=== PATIENT | female | born 1940 | race Caucasian/White ===

== ENCOUNTER 2016-05-03 08:06 | Emergency (ER) | payer MEDICARE ==
[~2016-05-03] VITALS: Ht 152.4 cm; Wt 52.2 kg
[~2016-05-03 08:06] MED LIST: ALBU8.5H INH; ALPR0.25 PO; HYDR-4246 PO; ONDA4TAB4 PO
[2016-05-03 08:10] VITALS: TEMP 98.2; Ht 152.4 cm; Wt 52.2 kg
--- OUTSIDE RECORDS SUMMARY | 2016-05-03 08:13 | XMS REPORT | Continuity of Care Document ---
Demographics Preferred Language Unknown Marital Status Unknown Anabaptist Affiliation Unknown Race Unknown Ethnic Group Unknown Author Author [facility] Organization [facility] Address Unknown Phone Unavailable Support Name Relationship Address Phone BRITTNY NG MD Caregiver [address] [place] [phone] Unavailable Advance Directives Directive Response Recorded Date/Time Advanced Directives Type None 02/01/16 2:25pm Chief Complaint and Reason for Visit Chief Complaint General Reason for Visit Back pain Problems Active Problems Medical Problem Onset Date Status Back pain Unknown Acute Medications Current Home Medications Medication Dose Units Route Directions Days Qty Instructions Start Date Albuterol Sulfate (Proair Hfa 90 Mcg/Actuation) 8.5 Gm Hfa.aer.ad 1 Puff Inhalation Every 6 Hours 02/01/16 Albuterol Sulfate (Proair Hfa 90 Mcg/Actuation) 8.5 Gm Hfa.aer.ad 1 Puff Inhalation Every 4 Hours as needed for Shortness Of Air 1 Inhaler 01/31 Alprazolam (Xanax) 0.25 Mg Tablet 0.25 Mg Oral Twice A Day as needed for Anxiety 02/01/16 Alprazolam (Xanax) 0.25 Mg Tablet 0.25 Mg Oral Every Eight Hours as needed for Anxiety/Airhunger/Agitation 30 Tablet 02/01/16 Hydrocodone/Acetaminophen ([place] 5-325 Tablet) 5-325 Tablet 0.5 Tab Oral Every 4 Hours as needed for Pain 02/01/16 Hydrocodone/Acetaminophen ([place] 5-325 Tablet) 5-325 Tablet 1 Tab Oral Every Six Hours as needed for Pain 30 Tablet 02/01/16 Ondansetron Hcl (Zofran) 4 Mg Tablet 4 Mg Oral Every 6 Hours for Nausea 20 Tablet 02/01/16 Social History Query Response Start Date Stop Date Smoking Status Never smoker Hospital Discharge Instructions No hospital discharge instructions. Plan of Care Discharge Date 02/01/16 4:18pm Disposition 01 DISCHARGED HOME, SELF-CARE Condition at Discharge Improved Instructions/Education Provided DI Sacroiliac Joint Dysfunction Prescriptions See Medication Section Referrals TORRES KRUEGER APRN Address: [address] [place] [phone] Note: CALL SOON POSSIBLE TO MAKE APPOINTMENT TO BE SEEN BY [facility] Additional Instructions/Education CALL [facility] AT [facility] REQUEST APPOINTMENT FOR MED CHECK . LET THE OFFICE KNOW THAT [facility] WAS CONTACTED BY THE ER AND AGREED TO SEE YOU FOR THIS. PHONE IS [phone] PLEASE RETURN TO THE ER IF NEEDED. Functional Status No functional status results. Allergies, Adverse Reactions, Alerts Allergen Type Severity Reaction Status Last Updated Codeine Allergy Mild SICK Active 02/01/16 Bupropion Allergy Mild SICK Active 02/01/16 Immunizations No immunization records. Vital Signs Acute Vital Signs Vital Response Date/Time Temperature (Fahrenheit) 98.7 deg F (96.8 - 99.1) 02/01/2016 4:18pm Temperature (Calculated Celsius) 37.42758 degrees C (36.0 - 37.3) 02/01/2016 4:18pm Pulse Rate (adult) 71 bpm (60 - 100) 02/01/2016 4:18pm Respiratory Rate 16 breaths/min (10 - 20) 02/01/2016 4:18pm O2 Sat by Pulse Oximetry 98 % (90 - 100) 02/01/2016 4:18pm Blood Pressure 138/80 mm Hg 02/01/2016 4:18pm Height (Feet) 5 feet 02/01/2016 2:25pm Height (Inches) 1.00 inches 02/01/2016 2:25pm Weight (Kilograms) 53.000 kg 02/01/2016 2:25pm Body Mass Index (BMI) 22.0 02/01/2016 2:25pm Results Laboratory Results Test Name Result Units Flags Reference Collection Date/Time Result Date/ Time Comments Urine Collection Type VOIDED-NOT CC-MIDSTR 02/01/2016 3:37pm 2015 3:50pm Urine Color YELLOW YELLOW 02/01/2016 3:37pm 02/01/2016 3:50pm Urine Turbidity CLEAR CLEAR 02/01/2016 3:37pm 02/01/2016 3:50pm Urine Specific [place] 1.015 1.015-1.025 02/01/2016 3:37pm 2015 3:50pm Urine pH 6.5 5.0-8.0 02/01/2016 3:37pm 02/01/2016 3:50pm Urine Leukocyte Esterase NEGATIVE NEGATIVE 02/01/2016 3:37pm 2015 3:50pm Urine Nitrite NEGATIVE NEGATIVE 02/01/2016 3:37pm 02/01/2016 3:50pm Urine Protein NEGATIVE NEGATIVE 02/01/2016 3:37pm 02/01/2016 3:50pm Urine Glucose (UA) NEGATIVE NEGATIVE 02/01/2016 3:37pm 02/01/2016 3: 50pm Urine Ketones 1+ A NEGATIVE 02/01/2016 3:37pm 02/01/2016 3:50pm Urine Urobilinogen 0.2 EU/DL NORMAL 02/01/2016 3:37pm 02/01/2016 3: 50pm Urine Bilirubin NEGATIVE NEGATIVE 02/01/2016 3:37pm 02/01/2016 3: 50pm Urine Blood 1+ A NEGATIVE 02/01/2016 3:37pm 02/01/2016 3:50pm Urine WBC NONE SEEN /HPF 0-5 02/01/2016 3:37pm 02/01/2016 3:57pm Urine RBC 0-1 /HPF 0-3 02/01/2016 3:37pm 02/01/2016 3:57pm Urine Bacteria NONE SEEN NEGATIVE 02/01/2016 3:37pm 02/01/2016 3: 57pm Urine Culture Indicated CULT NOT INDICATED 02/01/2016 3:37pm 2015 3:57pm Procedures No known history of procedures. Encounters Encounter Location Arrival/Admit Date Discharge/Depart Date Attending Provider Registered Emergency Room [facility] 02/01/16 2:22pm BRITTNY NG MD Recent Diagnosis
--- NOTE | 2016-05-03 08:27 | ERPDOC ---
Departure Disposition Decision Date: May 03, 2016 Disposition Decision Time: 10:24 Disposition: 01 DISCHARGED HOME, SELF-CARE Impression Impression Impression: Primary Impression: Abdominal pain Abdominal location: generalized Qualified Codes: R10.84 - Generalized abdominal pain Additional Impression: Ovarian cancer Laterality: unspecified laterality Qualified Codes: C56.9 - Malignant neoplasm of unspecified ovary Severity: Moderate Condition: Improved Seen By: Physician only Referrals: Rona FRAZIER MD Follow-up for reevaluation and solomon discussion of your treatment Patient Instructions: Pharmacological Management of Cancer Pain (ED) Problems/Meds/Labs Reviewed?: Yes Medications reviewed and manag: Yes Follow up care ordered?: Yes Mental Status: Alert, Oriented Scripts Promethazine HCl (Promethazine HCl) 25 Mg Tablet 1 TAB PO Q6H Y for NAUSEA &/OR VOMITING, #20 Prov: AILIN ALEJANDRA MD 05/03/16 HPI - Abdominal Pain General Chief Complaint: Abdominal Pain Stated Complaint: ABD PAIN Time Seen by Provider: 08:27 Source: patient History/Exam Limitations: no limitations HPI - Abdominal Pain Initial Comments Patient is 75-year-old female known history of ovarian cancer. Patient currently not choosing to treat. Patient woke at midnight with severe abdominal cramping with nausea and diarrhea at 7:30 this morning she started vomiting. Patient was given Phenergan and fentanyl by EMS and brought to the ER for evaluation. Patient denies any fevers, chills. Occurred At: home Duration: 6-12 hrs Pain Scale: Now: 4/10, Worst: 9/10 Location: generalized abdomen Allergies: Coded Allergies: ondansetron (Verified Allergy, Severe, 05/03/16) bupropion (Verified Allergy, Mild, SICK, 05/03/16) codeine (Verified Allergy, Mild, SICK, 05/03/16) Past History Past Medical History Metabolic: cancer (ovarian) Respiratory: COPD Psychological: anxiety, depression Social History Smoking Status: Current every day smoker Substance Use Type: does not use Alcohol Intake: none Marital Status: Housing: house Household Members: children Review of Systems Constitutional Constitutional: DENIES: appetite decrease, chills, dizziness, fever, weakness Eyes Vision: DENIES: double vision, loss of visual [place] ENMT Sinuses: DENIES: congestion, rhinorrhea Mouth/Throat: DENIES: scratchy throat, sore throat Cardiovascular Cardiac: DENIES: chest pain, dyspnea on exertion Pulmonary Respiratory: DENIES: cough, dyspnea, sputum, tachypnea GI Upper Abdomen: nausea, pain, vomiting Lower Abdomen: diarrhea, pain, DENIES: constipation General: DENIES: frequency, urgency Musculoskeletal General: DENIES: cramps, pain, weakness Endocrine Endocrine: DENIES: heat/cold intolerance Hematologic/Lymphatic Hematologic/Lymphatic: DENIES: anemia Physical Exam General General Nourishment: well nourished, well developed General Body Habitus: well groomed Vitals and Pain Weight: Kilograms: Height (feet): 5 Height (inches): 1.00 Triage Pain Scale: RN VS reviewed by Provider: Yes Eyes (brief) Eyes Brief: found: EOMI ENMT (brief) ENMT Brief: FOUND: mucosa moist, normal dentition, NOT FOUND: nasal erythema, pharnyx erythema, tonsillar deviation Neck (brief) Neck: NOT FOUND: adenopathy, spasm, tenderness Respiratory (brief) Respiratory: FOUND: clear all [place], equal bilaterally, NOT FOUND: rales, wheezes Cardiovascular (brief) Cardiac: FOUND: regular rate, regular rhythm Abdomen Palpation: FOUND: soft, tender (mild diffuse tenderness), NOT FOUND: Obturator sign, Psoas sign, hepatomegaly, involuntary guarding, splenomegaly, voluntary guarding Auscultation: FOUND: hyperactive Lymphatic (brief) Lymphatic Brief: NOT FOUND: adenopathy Musculoskeletal (brief) Musculoskeletal Brief: NOT FOUND: spasm, tenderness Integumentary (brief) Integumentary Brief: FOUND: dry, pink, warm, NOT FOUND: rash Neurologic (brief) Neurological Brief: FOUND: CN w/o gross def to obs, motor-no gross deficits, sensory-no gross deficits Psychiatric (brief) Psychiatric Brief: FOUND: alert, oriented Differential Diagnoses Considering: Appendicitis, Biliary Colic, Bowel Obstruction, Cholecystitis, Constipation, Crohn's, Diverticulitis, Gastroenteritis, GERD, GI Bleed, Ileus, Neoplasm, Ovarian Torsion, Pancreatitis, Pneumonia, Pyelonephritis, Renal Colic , Ulcer, Ulcerative Colitis, UTI, Volvulus Progress Results/Orders Orders Lab Results Medications Current ED Medications Fentanyl (Fentanyl) 50 mcg O ONCE IV Last administered on 05/03/16t 09:00; Start 05/03/16 at 08:45; Stop 05/03/16 at 11:24; Status DC Prochlorperazine Edisylate 10 mg 10 mg O ONCE IV Last administered on 08:55; Start 05/03/16 at 08:45; Stop 05/03/16 at 11:24; Status DC Sodium Chloride (Normal Saline IV) 1,000 ml @ 999 mls/hr Q1H1M ONCE IV ; Start 05/03/16 at 08:45; Stop 05/03/16 at 11:24; Status DC Promethazine HCl (Phenergan) 12.5 mg O ONCE IV Last administered on 05/03/16 09:51; Start 05/03/16 at 09:45; Stop 05/03/16 at 11:24; Status DC Fentanyl (Fentanyl) 50 mcg O ONCE IV Last administered on 05/03/16 09:51; Start 05/03/16 at 09:45; Stop 05/03/16 at 11:24; Status DC Progress Progress Patient with improvement of symptoms after pain medications, laboratories are noncontributory. Discussed with patient, she would decline further imaging at this time, we'll treat with Compazine for nausea so patient can take her home pain medications. Patient is to follow-up with PCP for further evaluation if not improving AILIN ALEJANDRA MD May 03, 2016 08:27 Lymphocytes % (Manual) 6.0% Monocytes % (Manual) 3.0% Absolute Neutrophils (Manual) 6.1T/MM3 Band Neutrophils # 0.2T/MM3 Lymphocytes # (Manual) 0.4T/MM3 Monocytes # (Manual) 0.2T/MM3 Red Cell Morphology Comment Normal Turbidity < 20 Sodium Level 133MEQ/L Potassium Level 4.0MEQ/L Chloride Level 99MEQ/L Carbon Dioxide Level 27MEQ/L Anion Gap 7MEQ/L Blood Urea Nitrogen 10.0MG/DL Creatinine 0.5MG/DL Glomerular Filtration Rate Calc 121 BUN/Creatinine Ratio 20RATIO Glucose Level 129MG/DL Calculated Osmolality 257MOSM/KG Calcium Level 9.0MG/DL Total Bilirubin 0.70MG/DL Icterus Index < 2 Aspartate Amino Transf (AST/SGOT) 30U/L Alanine Aminotransferase (ALT/SGPT) 29U/L Alkaline Phosphatase 70U/L Total Protein 6.9G/DL Albumin 4.1G/DL Globulin 2.8G/DL Albumin/Globulin Ratio 1.5RATIO Lipase 67U/L Chemistry Specimen Hemolysis < 15 Urine Collection Type Voided-not cc-midstr Urine Color Yellow Urine Turbidity Sl cloudy Urine pH 8.0 Urine Specific [place] 1.015 Urine Protein Negative Urine Glucose (UA) Negative Urine Ketones 1+ Urine Blood Trace-intact Urine Nitrite Negative Urine Bilirubin Negative Urine Urobilinogen 0.2EU/DL Urine Leukocyte Esterase Negative Urinalysis Comment Microscopic not ind. Medications Current ED Medications Fentanyl (Fentanyl) 50 mcg O ONCE IV Last administered on 05/03/16 09:00; Start 05/03/16 at 08:45; Stop 05/03/16 at 08:46 Prochlorperazine Edisylate 10 mg 10 mg O ONCE IV Last administered on 08:55; Start 05/03/16 at 08:45; Stop 05/03/16 at 08:46 Sodium Chloride (Normal Saline IV) 1,000 ml @ 999 mls/hr Q1H1M ONCE IV ; Start 05/03/16 at 08:45; Stop 05/03/16 at 09:45 Promethazine HCl (Phenergan) 12.5 mg O ONCE IV Last administered on 05/03/16 09:51; Start 05/03/16 at 09:45; Stop 05/03/16 at 09:46 Fentanyl (Fentanyl) 50 mcg O ONCE IV Last administered on 05/03/16 09:51; Start 05/03/16 at 09:45; Stop 05/03/16 at 09:46 AILIN ALEJANDRA MD May 03, 2016 08:27 AILIN ALEJANDRA MD May 03, 2016 08:27
[2016-05-03] MEDS ORDERED: PROCHLORPERAZINE 10mg/2ml INJECTION IV ONE (08:45)
[2016-05-03] MEDS ORDERED: FENTANYL 100mcg/2ml INJECTION IV ONE ×2 (08:45→09:45)
[2016-05-03] MEDS ORDERED: NORMAL SALINE 1,000 ML IV ONE (08:45)
[2016-05-03 09:11] LABS: HCT - HEMATOCRIT 40.5 % (36-46); HGB - HEMOGLOBIN 13.6 GM/DL (12-16); MEAN CORPUSCULAR HGB 30.9 UUG (26-34); MEAN CORPUSCULAR HGB CONC(MCHC 33.6 GM/DL (31-37); WBC - WHITE BLOOD COUNT 6.9 T/MM3 (4.5-11.0)
[2016-05-03 09:20] LABS: ALBUMIN 4.1 G/DL (3.5-5.0); ALBUMIN/GLOBULIN RATIO 1.5 RATIO (1.1-2.2); ALKALINE PHOSPHATASE 70 U/L (38-126); ALT (SGPT) 29 U/L (9-52); ANION GAP 7 MEQ/L (5-15); AST (SGOT) 30 U/L (14-36); BUN/CREATININE RATIO 20 RATIO (6-26); CHLORIDE 99 MEQ/L (98-107); CO2 - CARBON DIOXIDE 27 MEQ/L (22-30); CREATININE 0.5 MG/DL (0.7-1.2); GLOMERULAR FILTRATION RATE 121; GLUCOSE 129 MG/DL (65-110); LIPASE 67 U/L (23-300); SODIUM 133 MEQ/L (134-144); TOTAL PROTEIN 6.9 G/DL (6.3-8.2)
[2016-05-03 09:28] LABS: BAND NEUTROPHILS # 0.2 T/MM3; LYMPHOCYTES # (MANUAL) 0.4 T/MM3 (1-4.8); MONOCYTES # (MANUAL) 0.2 T/MM3 (0-0.8); NEUTROPHILS #(MANUAL)-ABSOLUTE 6.1 T/MM3 (1.8-7.7); TOTAL CELLS COUNTED 100 %
[2016-05-03 09:35] LABS: BLOOD, URINE TRACE-INTACT (NEGATIVE); COLOR,URINE YELLOW (YELLOW); LEUKOCYTE ESTERASE ,URINE NEGATIVE (NEGATIVE); NITRITE,URINE NEGATIVE (NEGATIVE); UROBILINOGEN,URINE 0.2 EU/DL (NORMAL)
[2016-05-03] MEDS ORDERED: IBUP200C62 PO (09:39)
[2016-05-03] MEDS ORDERED: ASCO-324 PO (09:40)
[2016-05-03] MEDS ORDERED: DOCU100T10 PO (09:40)
[2016-05-03] MEDS ORDERED: LIDO76.5 TOP (09:41)
[2016-05-03] MEDS ORDERED: PROMETHAZINE 25 MG INJECTION IV ONE (09:45)
[2016-05-03] MEDS ORDERED: PROM25TA7 PO (10:56)
[2016-05-03 11:10] VITALS: BP 148/82; PULSE 80; RESP 16; O2SAT 94
== END 2016-05-03 11:14 | disposition home or self-care (01) ==
LOC: ED 08:06
DX: R10.84 Generalized abdominal pain (principal); R11.2 Nausea with vomiting, unspecified; R19.7 Diarrhea, unspecified; C56.9 Malignant neoplasm of unspecified ovary
CPT/HCPCS: 36415; 80053; 81003; 83690; 85025; 96361; 96374; 96375; 96376; 99284; J0780; J2550; J3010